=== PATIENT | female | born 1965 | race Caucasian/White ===

== ENCOUNTER 2016-12-14 18:35 | Emergency (ER) | payer OTHER ==
[~2016-12-14] VITALS: Ht 157.5 cm; Wt 55.4 kg
[~2016-12-14 18:35] MED LIST: HYDR200T42 PO
[2016-12-14 18:37] VITALS: BP 146/85; PULSE 89; RESP 16; TEMP 98.6; O2SAT 99
[2016-12-14] MEDS ORDERED: SODIUM CHLORIDE 0.9% FLUSH 10 ML FLUSH IV FLUSH PRN (19:00)
--- NOTE | 2016-12-14 19:02 | PD ---
HPI Chief Complaint: GI Complaint Time Seen by Provider: 18:54 Travel History International Travel<30 days: No Contact w/Intl Traveler<30days: No Traveled to known affect area: No History of Present Illness HPI patient started having some loose stools over past 3 days or so, now more jelly like and reddish appearance, not assoc with fever/n/v but is assoc with crampy abd pain, 6/10. patient has had a h/o mi with stent, as well as RA on methotrexate/medrol/plaquenil....so sent in from urgent care for further evaluation. PFSH Past Medical History Hx Anticoagulant Therapy: Yes (BABY ASA DAILY ) Arthritis: Yes (rheumatoid) Heart Rhythm Problems: No Cardiac Catheterization: No Cardiovascular Problems: Yes (HTN, CHOL) High Cholesterol: No Congestive Heart Failure: No Diabetes: No Hypertension: No Myocardial Infarction: No ?: Not Menopausal: Yes Past Surgical History Coronary Artery Bypass Graft: No Social History Alcohol Use: No Tobacco Use: No Substance Use: No Allergies-Medications (Allergen,Severity, Reaction): Coded Allergies: No Known Allergies (Verified , 12/14/16) Reported Meds & Prescriptions Reported Meds & Active Scripts Active Reported Methylprednisolone 8 Mg Tab 8 Mg PO DAILY Aspirin 81 (Aspirin) 81 Mg Tabdr 81 Mg PO DAILY Folic Acid 1 Mg Tablet Metoprolol Tartrate 25 Mg Tab 25 Mg PO DAILY Plaquenil (Hydroxychloroquine Sulfate) 200 Mg Tab 200 Mg PO DAILY Take with food Methotrexate 2.5 Mg Tab 2.5 Mg PO Q7D Review of Systems Except as stated in HPI: all other systems reviewed are Neg Gastrointestinal: Positive: Diarrhea, Abdominal Pain, Hematochezia Physical Exam Narrative GENERAL: SKIN: Warm and dry. HEAD: Atraumatic. Normocephalic. EYES: Pupils equal and round. No scleral icterus. No injection or drainage. ENT: No nasal bleeding or discharge. Mucous membranes pink and moist. NECK: Trachea midline. No JVD. CARDIOVASCULAR: Regular rate and rhythm. RESPIRATORY: No accessory muscle use. Clear to auscultation. Breath sounds equal bilaterally. GASTROINTESTINAL: Abdomen soft, non-tender, nondistended. MUSCULOSKELETAL: Extremities without clubbing, cyanosis, or edema. No obvious deformities. NEUROLOGICAL: Awake and alert. No obvious cranial nerve deficits. Motor grossly within normal limits. Five out of 5 muscle strength in the arms and legs. Normal speech. PSYCHIATRIC: Appropriate mood and affect; insight and judgment normal. Data Data Last Documented VS Vital Signs Date Time Temp Pulse Resp B/P Pulse Ox O2 Delivery O2 Flow Rate FiO2 12/14/16 18:37 98.6 89 16 146/85 99 Orders Complete Blood Count With Diff (12/14/16 18:54) Comprehensive Metabolic Panel (12/14/16 18:54) Lipase (12/14/16 18:54) Prothrombin Time / Inr (Pt) (12/14/16 18:54) Act Partial Throm Time (Ptt) (12/14/16 18:54) Ct Abd/Pel W Iv Contrast(Rout) (12/14/16 18:54) Iv Access Insert/Monitor (12/14/16 18:54) Ecg Monitoring (12/14/16 18:54) Oximetry (12/14/16 18:54) NPO (12/14/16 18:54) Sodium Chloride 0.9% Flush (Ns Flush) (12/14/16 19:00) Enteric Path (Stool) (12/14/16 18:54) C Diff Toxin Pcr (12/14/16 18:54) Giardia Antigen (Stool) (12/14/16 18:54) Stool Wbc (Leukocytes) (12/14/16 18:54) Amoxicil-Clavulanate (Augmentin) (12/14/16 20:45) Metronidazole (Flagyl) (12/14/16 20:45) Labs Laboratory Tests Test 12/14/16 19:25 White Blood Count 7.6 TH/MM3 Red Blood Count 4.26 MIL/MM3 Hemoglobin 12.6 GM/DL Hematocrit 38.8 % Mean Corpuscular Volume 91.0 FL Mean Corpuscular Hemoglobin 29.6 PG Mean Corpuscular Hemoglobin 32.5 % Concent Red Cell Distribution Width 14.3 % Platelet Count 210 TH/MM3 Mean Platelet Volume 8.1 FL Neutrophils (%) (Auto) 62.1 % Lymphocytes (%) (Auto) 19.2 % Monocytes (%) (Auto) 17.5 % Eosinophils (%) (Auto) 0.7 % Basophils (%) (Auto) 0.5 % Neutrophils # (Auto) 4.7 TH/MM3 Lymphocytes # (Auto) 1.5 TH/MM3 Monocytes # (Auto) 1.3 TH/MM3 Eosinophils # (Auto) 0.1 TH/MM3 Basophils # (Auto) 0.0 TH/MM3 CBC Comment DIFF FINAL Differential Comment Prothrombin Time 12.0 SEC Prothromb Time International 1.1 RATIO Ratio Activated Partial 28.4 SEC Thromboplast Time Sodium Level 141 MEQ/L Potassium Level 3.2 MEQ/L Chloride Level 104 MEQ/L Carbon Dioxide Level 29.5 MEQ/L Anion Gap 8 MEQ/L Blood Urea Nitrogen 12 MG/DL Creatinine 0.71 MG/DL Estimat Glomerular Filtration 86 ML/MIN Rate Random Glucose 96 MG/DL Calcium Level 9.5 MG/DL Total Bilirubin 0.8 MG/DL Aspartate Amino Transf 20 U/L (AST/SGOT) Alanine Aminotransferase 53 U/L (ALT/SGPT) Alkaline Phosphatase 48 U/L Total Protein 8.2 GM/DL Albumin 4.0 GM/DL Lipase 127 U/L [facility] Medical Decision Making Medical Screen Exam Complete: Yes Emergency Medical Condition: Yes Medical Record Reviewed: Yes Differential Diagnosis infectious cause v gi bleed v sbo v ileus Narrative Course STOOL SAMPLE SENT BUT NO CULTURES OR MAJOR RESULTS TODAY EXCEPT FOR POSITIVE FECAL LEUKOCYTES, STABLE H/H, CT NEG FOR SBO/ILEUS MAKES THIS CASE SEEM MORE LIKELY TO BE DUE TO INFECTIOUS CAUSES THAN ACTUAL GI BLEEDING ( THERE WERE ONLY SPECKS AND STREAKS ON LOOSE JELLY LIKE STOOL MOVEMENT) Diagnosis Primary Impression: ACUTE BACTERIAL ENTERITIS Patient Instructions: Enteritis (ED), General Instructions Scripts Metronidazole (Flagyl)500 Mg [id number] Mg PO TID #21 TAB Prov:Azael Nascimento MD 12/14/16 Amoxicillin-Clavulanate (Augmentin)875-125 Mg Tab1 Tab PO BID #14 TAB Prov:Azael Nascimento MD 12/14/16 Disposition: 01 DISCHARGE HOME Condition: Stable Azael Nascimento MD Dec 14, 2016 19:02
[2016-12-14] MEDS ORDERED: ASPI-110 PO (19:06)
[2016-12-14] MEDS ORDERED: METO25TA3 PO (19:06)
[2016-12-14] MEDS ORDERED: PLAQ200T PO (19:06)
[2016-12-14] MEDS ORDERED: METH2.5T PO (19:06)
[2016-12-14] MEDS ORDERED: FOLI1TAB6 (19:06)
[2016-12-14] MEDS ORDERED: METH8TAB3 PO (19:08)
[2016-12-14 19:46] LABS: AUTOMATED NEUTROPHIL # 4.7 TH/MM3 (1.8-7.7); BASOPHIL % 0.5 % (0.0-2.0); EOSINOPHIL # 0.1 TH/MM3 (0-0.4); EOSINOPHIL % 0.7 % (0.0-4.0); HEMATOCRIT 38.8 % (35.0-46.0); HEMO FLAGS DIFF FINAL; LYMPH % 19.2 % (9.0-44.0); LYMPHOCYTE # 1.5 TH/MM3 (1.0-4.8); MEAN CORPUSCULAR HEMOGLOBIN 29.6 PG (27.0-34.0); MEAN CORPUSCULAR HGB CONC 32.5 % (32.0-36.0); MONO % 17.5 % (0.0-8.0); NEUT % 62.1 % (16.0-70.0); PLATELET COUNT 210 TH/MM3 (150-450); RED BLOOD COUNT 4.26 MIL/MM3 (4.00-5.30); RED CELL DISTRIBUTION WIDTH 14.3 % (11.6-17.2); WHITE BLOOD COUNT 7.6 TH/MM3 (4.0-11.0)
[2016-12-14 19:53] LABS: CHLORIDE 104 MEQ/L (98-107); POTASSIUM 3.2 MEQ/L (3.5-5.1); SODIUM (NA) 141 MEQ/L (136-145)
[2016-12-14 19:57] LABS: ANION GAP 8 MEQ/L (5-15); APTT (PATIENT) 28.4 SEC (24.3-30.1); BICARBONATE 29.5 MEQ/L (21.0-32.0); BLOOD UREA NITROGEN 12 MG/DL (7-18); INTERNATIONAL NORMALIZED RATIO 1.1 RATIO
[2016-12-14 20:00] LABS: ALT (GPT) 53 U/L (10-53); AST (GOT) 20 U/L (15-37); GLOMERULAR FILTRATION RATE 86 ML/MIN (>89)
[2016-12-14 20:01] LABS: TOTAL BILIRUBIN ADULT 0.8 MG/DL (0.2-1.0)
[2016-12-14 20:03] LABS: ALKALINE PHOSPHATASE 48 U/L (45-117)
[2016-12-14] MEDS ORDERED: IOHEXOL 350 MG/ML 10 ML VIAL (for RAD DIAG) IV ONE (20:37)
[2016-12-14] MEDS ORDERED: METR-1 PO (20:37)
[2016-12-14] MEDS ORDERED: AUGM875T3 PO (20:37)
[2016-12-14] MEDS ORDERED: metroNIDAZOLE 500 MG TAB PO ONE (20:45)
[2016-12-14] MEDS ORDERED: AMOXICILLIN/CLAVULANATE K 875 MG TAB PO ONE (20:45)
--- NOTE | 2016-12-14 20:52 | RADRPT ---
EXAM DATE/TIME: 12/14/2016 20:18 [place] COMPARISON: No previous studies available for comparison. INDICATIONS : Bloody diarrhea. Possible GI bleed IV CONTRAST: 96 cc Omnipaque 350 (iohexol) IV ORAL CONTRAST: No oral contrast ingested. RADIATION DOSE: 4.99 CTDIvol (mGy) MEDICAL HISTORY : Hypertension. SURGICAL HISTORY : Cholecystectomy. ENCOUNTER: Initial ACUITY: 3 days PAIN SCALE: 0/10 LOCATION: abdomen TECHNIQUE: Volumetric scanning of the abdomen and pelvis was performed. Using automated exposure control and ad justment of the mA and/or kV according to patient size, radiation dose was kept as low as reasonably achievable to obtain optimal diagnostic quality images. DICOM format image data is available electro nically for review and comparison. FINDINGS: Leg bases are clear. No significant abnormality in the liver, spleen, adrenals, kidneys or pancreas. No calcified gallstones or biliary ductal dilatation. No bowel obstruction. No free air or free fluid. CONCLUSION: 1. No acute findings. Quentin Dueñas MD on December 14, 2016 at 20:45 Board Certified Radiologist. This report was verified electronically.
[2016-12-14 21:34] VITALS: BP 132/61
[2016-12-14 23:05] LABS: C. DIFF EPI 027 PRESUMPTIVE NEGATIVE (NEGATIVE)
[2016-12-14 23:56] LABS: C. DIFF TOXIN PCR POSITIVE (NEGATIVE)
== END 2016-12-14 21:38 | disposition home or self-care (01) ==
LOC: PHED 18:35
DX: A04.9 Bacterial intestinal infection, unspecified (principal); K92.1 Melena; Z79.82 Long term (current) use of aspirin
CPT/HCPCS: 74177; 80053; 83690; 85025; 85610; 85730; 87205; 87329; 87493; 87506; 99284; Q9967